=== PATIENT | female | born 1995 | race Caucasian/White ===

== ENCOUNTER 2018-01-09 09:22 | Emergency (ER) | payer BC, OTHER ==
[2018-01-09 09:29] VITALS: RESP 18
[2018-01-09] MEDS ORDERED: HYDROcodone/APAP 5-325MG 1 EACH TAB PO STA (10:01)
--- NOTE | 2018-01-09 10:28 | ED ---
Fall HPI - General Chief Complaint: Fall Stated Complaint: Fall, tail bone pain Time Seen by Provider: 01/09/18 09:36 Source: patient, RN notes reviewed Mode of arrival: wheelchair Limitations: no limitations - History of Present Illness Initial Comments: 22-year-old female presents emergency Department chief complaint slip and fall. Patient states that she was going down her wooden steps states that they were wet and slippery. Patient states that she slipped falling onto her right low back, right hip region. Patient states that she had no head injury no loss conscious. Patient states that she is able to ambulate though she has excruciating pain. She denies any abdominal pain including nausea, vomiting diarrhea constipation. Denies any chance of . Patient states that she has no upper back or upper extremity injuries. - Related Data Previous Rx's Medication Instructions Recorded Cyclobenzaprine [Flexeril] 10 mg PO TID PRN #15 tab 01/09/18 Ibuprofen [Motrin] 600 mg PO Q8HR PRN #30 tab 01/09/18 Allergies Allergy/AdvReac Type Severity Reaction Status Date / Time No Known Allergies Allergy Verified 01/09/18 09:50 Review of Systems ROS Statement: Those systems with pertinent positive or pertinent negative responses have been documented in the HPI. ROS Other: All systems not noted in ROS Statement are negative. Past Medical History Past Medical History: No Reported History History of Any Multi-Drug Resistant Organisms: None Reported Past Surgical History: Appendectomy, Tonsillectomy Past Psychological History: No Psychological Hx Reported Smoking Status: Current every day smoker Past Alcohol Use History: Occasional Past Drug Use History: None Reported General Exam Limitations: no limitations General appearance: alert, in no apparent distress Head exam: Present: atraumatic, normocephalic, normal inspection Neck exam: Present: normal inspection, full ROM. Absent: tenderness, meningismus, lymphadenopathy Respiratory exam: Present: normal lung sounds bilaterally. Absent: respiratory distress, wheezes, rales, rhonchi, stridor Cardiovascular Exam: Present: regular rate, normal rhythm, normal heart sounds. Absent: systolic murmur, diastolic murmur, rubs, gallop, clicks Extremities exam: Present: other (Patient's full range of motion of bilateral lower extremity neurovascular intact no obvious deformity) Back exam: Present: full ROM, tenderness (Tenderness diffusely to the right lumbar region), paraspinal tenderness, other (Normal straight leg raise). Absent: CVA tenderness (R), CVA tenderness (L), vertebral tenderness Neurological exam: Present: alert, oriented X3, CN II-XII intact, reflexes normal. Absent: motor sensory deficit Skin exam: Present: warm, dry, intact, normal color. Absent: rash Course Vital Signs 01/09/18 09:25 Temperature 98.3 F Pulse Rate 84 Respiratory 18 Rate Blood Pressure 125/89 O2 Sat by Pulse 99 Oximetry Medical Decision Making - Medical Decision Making 22-year-old female presented for fall, back and hip pain. X-rays were obtained no acute fracture. Patient has contusion to her buttocks, back region. Patient we discharged with anti-inflammatories and pain control return parameters were discussed. Disposition Clinical Impression: Fall, Back pain, Contusion, hip Disposition: HOME SELF-CARE Condition: Stable Instructions: Back Pain (ED), Hip Contusion (ED) Additional Instructions: Please return to the Emergency Department if symptoms worsen or any other concerns. Prescriptions: Cyclobenzaprine [Flexeril] 10 mg PO TID PRN #15 tab PRN Reason: Muscle Spasm Ibuprofen [Motrin] 600 mg PO Q8HR PRN #30 tab PRN Reason: Pain Is patient prescribed a controlled substance at d/c from ED?: No Referrals: None,Stated [Primary Care Provider] - 1-2 days Time of Disposition: 11:07
--- NOTE | 2018-01-09 10:53 | XR ---
EXAMINATION TYPE: XR pelvis AP view DATE OF EXAM: 01/09/2018 CLINICAL HISTORY: Fall injury with pain TECHNIQUE: A single AP view of the pelvis is obtained. COMPARISON: None. FINDINGS: There is no acute fracture/dislocation evident in the pelvis. The hip and sacroiliac join ts appear symmetric and unremarkable. The overlying soft tissue appears unremarkable. IMPRESSION: There is no acute fracture or dislocation in the pelvis.
--- NOTE | 2018-01-09 10:54 | XR ---
EXAMINATION TYPE: XR lumbosacral spine min 4V DATE OF EXAM: 01/09/2018 CLINICAL HISTORY: Fall injury today with pain TECHNIQUE: Frontal, lateral, and oblique images of the lumbar spine are obtained. COMPARISON: None FINDINGS: There are 5 lumbar type vertebral bodies identified. The lumbar spine shows straightened alignment without evidence of acute fracture or dislocation. Vertebral body heights and disk space he ights are within normal limits. The oblique images appear within normal limits. The overlying soft tissue appears unremarkable. IMPRESSION: No acute fracture or dislocation is seen in the lumbar spine.
[2018-01-09] MEDS ORDERED: ACET/COD 300 MG/30 MG STARTER PACK 6 TAB BTL PO STA (11:07)
[2018-01-09 11:33] VITALS: BP 109/59; PULSE 98; TEMP 98.1
== END 2018-01-09 11:30 | disposition home or self-care (01) ==
LOC: EC 09:22
DX: S70.01XA Contusion of right hip, initial encounter (principal); S30.0XXA Contusion of lower back and pelvis, initial encounter; M54.5 Low back pain; F17.200 Nicotine dependence, unspecified, uncomplicated; Z90.49 Acquired absence of other specified parts of digestive tract; W10.9XXA Fall (on) (from) unspecified stairs and steps, initial encounter; Y92.009 Unspecified place in unspecified non-institutional (private) residence as the place of occurrence of the external cause
CPT/HCPCS: 72110; 72170; 99283